=== PATIENT | female | born 1965 | race Caucasian/White ===

== ENCOUNTER → 2016-05-09 | Outpatient (CLI) | payer OTHER ==
[~2016-05-09] MED LIST: BRILINTA 90 MG90 MG PO; CALCIUM 600 +1 EAC3 PO; CLARITIN10 MG PO; DULERA 100 MCG8.8 GM INH; FLORINEF 0.1 M0.1 MG PO; FOSAMAX70 MG PO; HUMIRA40 MG/0.8 SQ; HYDROXYZINE HCL25 MG PO; IMDUR ER TAB 3030 MG PO; KLONOPIN0.5 MG PO; LIPITOR TAB 2020 MG PO; LOPRESSOR50 MG PO; LYRICA75 MG PO; NITROSTAT0.4 MG SL; NORVASC 5 MG TAB5 MG PO; NOVOLOG100 UNIT/1 SQ; PERCOCET 10-321 EACH PO; PLAQUENIL 200200 MG PO; PLETAL 100 MG100 MG PO; PRAVACHOL40 MG PO; PROTONIX40 MG PO; RANEXA1000 MG PO; SINGULAIR10 MG PO; TOPAMAX25 MG PO; VENTOLIN HFA 66.7 GM INH
[2016-05-09 09:54] LABS: HEMOGLOBIN 12.3 gm/dl (12.3-15.3); RED BLOOD COUNT 4.15 M/UL (4.00-5.10); WHITE BLOOD COUNT 4.6 K/UL (4.5-11.0)
== END ==
LOC: LAB 09:02
PROVIDERS: Internal Medicine Rheumatology
DX: Z51.81 Encounter for therapeutic drug level monitoring (principal); E10.65 Type 1 diabetes mellitus with hyperglycemia; I10 Essential (primary) hypertension; R53.83 Other fatigue; J02.9 Acute pharyngitis, unspecified; Z79.01 Long term (current) use of anticoagulants
CPT/HCPCS: 36415; 80053; 80061; 82043; 82570; 82607; 84439; 84443; 85025

== ENCOUNTER 2016-05-14 10:09 | Observation (INO) | payer OTHER ==
[~2016-05-14] VITALS: Ht 170.2 cm; Wt 72.1 kg
[~2016-05-14 10:09] MED LIST changes: -HYDROXYZINE HCL25 MG PO; -SINGULAIR10 MG PO
[2016-05-14 10:59] LABS: HEMOGLOBIN 11.9 gm/dl (12.3-15.3); RED BLOOD COUNT 3.96 M/UL (4.00-5.10); WHITE BLOOD COUNT 5.3 K/UL (4.5-11.0)
[2016-05-15 02:31] LABS: HEMOGLOBIN 12.5 gm/dl (12.3-15.3); RED BLOOD COUNT 4.18 M/UL (4.00-5.10); WHITE BLOOD COUNT 6.5 K/UL (4.5-11.0)
[2016-05-15] MEDS ORDERED: HYDROXYZINE HCL25 MG PO (03:28)
[2016-11-21] MEDS ORDERED: SINGULAIR10 MG PO (19:59)
[2016-11-21] MEDS ORDERED: NITROSTAT0.4 MG SL (20:00)
[2016-11-21] MEDS ORDERED: VENTOLIN HFA 66.7 GM INH (20:00)
== END 2016-05-15 19:59 | disposition home or self-care (01) ==
LOC: ER1 10:09 → ZEROF 11:31 → M/S 21:39 → CCU 05-15 03:19 → PROG CARE 05-15 08:56
PROVIDERS: Emergency Medicine; ADMIT Family Medicine
DX: I25.110 Atherosclerotic heart disease of native coronary artery with unstable angina pectoris (principal); I10 Essential (primary) hypertension; I49.8 Other specified cardiac arrhythmias; E10.610 Type 1 diabetes mellitus with diabetic neuropathic arthropathy; F41.8 Other specified anxiety disorders; M06.9 Rheumatoid arthritis, unspecified; M15.4 Erosive (osteo)arthritis; E78.5 Hyperlipidemia, unspecified; K76.0 Fatty (change of) liver, not elsewhere classified; J45.909 Unspecified asthma, uncomplicated; E10.40 Type 1 diabetes mellitus with diabetic neuropathy, unspecified; M79.7 Fibromyalgia; I25.10 Atherosclerotic heart disease of native coronary artery without angina pectoris; T79.A11A Traumatic compartment syndrome of right upper extremity, initial encounter; I73.9 Peripheral vascular disease, unspecified; M72.6 Necrotizing fasciitis; G47.33 Obstructive sleep apnea (adult) (pediatric); Z79.891 Long term (current) use of opiate analgesic; Z79.899 Other long term (current) drug therapy; Z86.718 Personal history of other venous thrombosis and embolism; Z90.711 Acquired absence of uterus with remaining cervical stump; Z88.6 Allergy status to analgesic agent; Z91.041 Radiographic dye allergy status; Z88.2 Allergy status to sulfonamides; Z79.52 Long term (current) use of systemic steroids; Z98.61 Coronary angioplasty status; Z86.69 Personal history of other diseases of the nervous system and sense organs; Z82.49 Family history of ischemic heart disease and other diseases of the circulatory system
CPT/HCPCS: 36415; 71010; 78452; 80048; 80053; 82550; 82553; 82962; 83874; 83880; 84484; 85025; 85610; 85730; 93005; 93017; 96374; 96375; 96376; 99291; A9502; G0378; J1644; J2270; J2405; J2785

== ENCOUNTER → 2020-03-22 | Outpatient (CLI) | payer OTHER ==
[~2020-03-22] MED LIST changes: +ARAVA20 MG PO; +BENTYL 20MG TAB20 MG PO; +ERYTHROMYCIN OP1 GM OP; +FOLBEE PLUS CZ1 EACH PO; +HYDROXYZINE HCL25 MG PO; +IBUPROFEN600 MG PO; +MIRALAX17 GM PO; +OMNICEF 300 MG300 MG PO; +PREDNISONE10 MG PO; +REGLAN10 MG PO; +SINGULAIR10 MG PO; +TESSALON PERLE100 MG PO; +VIBRAMYCIN100 MG PO; +Voltaren Gel 1 % TOP; +XYZAL5 MG PO; +ZOFRAN ODT 4 MG4 MG PO; +ZOLOFT50 MG PO
[2020-03-22 10:51] LABS: HEMOGLOBIN 13.6 gm/dl (12.3-15.3); RED BLOOD COUNT 4.51 M/UL (4.00-5.10); WHITE BLOOD COUNT 8.2 K/UL (4.5-11.0)
[2020-03-22 11:22] LABS: BUN/CREATININE RATIO 22 (0-10)
[2020-03-25 23:06] LABS: QUANTIFERON MITOGEN VALUE >10.00 IU/mL (.); QUANTIFERON NIL VALUE 0.03 IU/mL (.); QUANTIFERON TB1 AG VALUE 0.06 IU/mL (.); QUANTIFERON TB2 AG VALUE 0.04 IU/mL (.); QUANTIFERON-TB GOLD PLUS Negative (Negative)
== END ==
LOC: LAB 09:18
PROVIDERS: Internal Medicine Rheumatology
DX: Z51.81 Encounter for therapeutic drug level monitoring (principal); M06.00 Rheumatoid arthritis without rheumatoid factor, unspecified site
CPT/HCPCS: 36415; 80053; 85025; 85652; 86140

== ENCOUNTER 2020-04-22 15:26 | Emergency (ER) | payer OTHER ==
[2020-04-22 16:40] LABS: HEMOGLOBIN 13.8 gm/dl (12.3-15.3); RED BLOOD COUNT 4.55 M/UL (4.00-5.10); WHITE BLOOD COUNT 6.1 K/UL (4.5-11.0)
[2020-04-22 17:14] LABS: BUN/CREATININE RATIO 16 (0-10)
== END 2020-04-23 00:48 ==
LOC: ER1 15:26
PROVIDERS: Emergency Medicine
DX: G45.9 Transient cerebral ischemic attack, unspecified (principal); E11.65 Type 2 diabetes mellitus with hyperglycemia; J45.909 Unspecified asthma, uncomplicated; I11.9 Hypertensive heart disease without heart failure; Z20.822 Contact with and (suspected) exposure to COVID-19; Z79.4 Long term (current) use of insulin; Z90.710 Acquired absence of both cervix and uterus; Z88.6 Allergy status to analgesic agent; Z88.8 Allergy status to other drugs, medicaments and biological substances
CPT/HCPCS: 0240U; 70450; 71045; 80053; 82550; 82553; 82962; 83874; 83880; 84484; 85025; 93005; 96374; 96375; 99285; J2405

== ENCOUNTER 2020-06-20 09:10 | Emergency (ER) | payer OTHER ==
[2020-06-20 09:51] LABS: HEMOGLOBIN 12.6 gm/dl (12.3-15.3); RED BLOOD COUNT 4.12 M/UL (4.00-5.10); WHITE BLOOD COUNT 4.6 K/UL (4.5-11.0)
[2020-06-20 10:14] LABS: BUN/CREATININE RATIO 17 (0-10)
== END 2020-06-20 13:40 | disposition home or self-care (01) ==
LOC: ER1 09:10
PROVIDERS: Emergency Medicine
DX: R07.9 Chest pain, unspecified (principal); R51.9 Headache, unspecified; E78.5 Hyperlipidemia, unspecified; I10 Essential (primary) hypertension; Z79.899 Other long term (current) drug therapy; Z88.2 Allergy status to sulfonamides; Z88.6 Allergy status to analgesic agent; Z88.8 Allergy status to other drugs, medicaments and biological substances; Z91.041 Radiographic dye allergy status; Z86.73 Personal history of transient ischemic attack (TIA), and cerebral infarction without residual deficits
CPT/HCPCS: 70450; 71045; 80053; 82550; 82553; 83874; 84484; 85025; 93005; 99285

== ENCOUNTER → 2020-10-31 | Outpatient (CLI) | payer OTHER | LOC: HEART 5 10:35 | DX: J45.50 Severe persistent asthma, uncomplicated (principal); R94.2 Abnormal results of pulmonary function studies | CPT/HCPCS: 94010; 94060; 94729; 95012 ==

== ENCOUNTER → 2020-11-03 | Outpatient (CLI) | payer OTHER ==
[2020-11-03 08:09] LABS: HEMOGLOBIN 13.2 gm/dl (12.3-15.3); RED BLOOD COUNT 4.35 M/UL (4.00-5.10); WHITE BLOOD COUNT 6.4 K/UL (4.5-11.0)
== END ==
LOC: LAB 07:27
PROVIDERS: Nurse Practitioner Family
DX: J45.50 Severe persistent asthma, uncomplicated (principal); I10 Essential (primary) hypertension; E78.5 Hyperlipidemia, unspecified; E55.9 Vitamin D deficiency, unspecified
CPT/HCPCS: 36415; 80053; 80061; 82570; 82607; 82785; 84156; 84439; 84443; 85025

== ENCOUNTER 2020-11-27 10:05 | Emergency (ER) | payer OTHER | END 2020-11-27 12:42 | disposition home or self-care (01) | LOC: ER1 10:05 | DX: S70.02XA Contusion of left hip, initial encounter (principal); S80.02XA Contusion of left knee, initial encounter; S60.212A Contusion of left wrist, initial encounter; W19.XXXA Unspecified fall, initial encounter | CPT/HCPCS: 72192; 73110; 73564; 99284 ==

== ENCOUNTER → 2021-01-04 | Outpatient (CLI) | payer OTHER | LOC: KOH-I 12-28 14:30 | DX: N20.0 Calculus of kidney (principal) | CPT/HCPCS: 74176 ==

== ENCOUNTER 2021-01-30 20:54 | Inpatient (IN) | payer OTHER ==
[~2021-01-30] VITALS: Ht 170.2 cm; Wt 86.2 kg
[~2021-01-30 20:54] MED LIST changes: -FOSAMAX70 MG PO; -HUMIRA40 MG/0.8 SQ; -LIPITOR TAB 2020 MG PO; -LYRICA75 MG PO; -NOVOLOG100 UNIT/1 SQ; -PERCOCET 10-321 EACH PO; -PLETAL 100 MG100 MG PO
[2021-01-30 22:23] LABS: HEMOGLOBIN 12.4 gm/dl (12.3-15.3); RED BLOOD COUNT 4.09 M/UL (4.00-5.10); WHITE BLOOD COUNT 10.5 K/UL (4.5-11.0)
[2021-01-30 22:54] LABS: BUN/CREATININE RATIO 16 (0-10)
[2021-01-31] MEDS ORDERED: LYRICA150 MG PO (07:37)
[2021-01-31] MEDS ORDERED: PROTONIX40 MG PO (07:39)
[2021-01-31] MEDS ORDERED: CYCLOBENZAPRINE5 MG PO (14:49)
[2021-01-31] MEDS ORDERED: LACTULOSE10 GM/15 M PO (14:50)
[2021-01-31] MEDS ORDERED: MACROBID 100 M100 M1 PO (14:51)
[2021-01-31] MEDS ORDERED: ISOSORBIDE MONO30 MG PO (14:52)
[2021-01-31] MEDS ORDERED: KINERET100 MG/0.6 SQ (14:52)
[2021-01-31] MEDS ORDERED: ISOSORBIDE MONO60 MG PO (14:52)
[2021-01-31] MEDS ORDERED: LOSARTAN POTASS50 MG PO (14:53)
[2021-01-31] MEDS ORDERED: TAMSULOSIN HCL0.4 MG PO (14:53)
[2021-01-31] MEDS ORDERED: PERCOCET 7.5-31 EACH PO (18:58)
[2021-01-31] MEDS ORDERED: PLETAL 100 MG100 MG PO (19:01)
[2021-01-31] MEDS ORDERED: LIPITOR80 MG PO (19:01)
[2021-01-31] MEDS ORDERED: HUMIRA40 MG/0.8 SQ (19:09)
[2021-01-31] MEDS ORDERED: NOVOLOG100 UNIT/1 SQ (19:10)
[2021-01-31] MEDS ORDERED: NITROSTAT0.4 MG SL (20:00)
[2021-01-31] MEDS ORDERED: PROAIR DIGIHAL90 MCG INH (20:00)
[2021-02-01 05:37] LABS: HEMOGLOBIN 11.7 gm/dl (12.3-15.3); RED BLOOD COUNT 3.94 M/UL (4.00-5.10); WHITE BLOOD COUNT 11.5 K/UL (4.5-11.0)
[2021-02-01 06:24] LABS: BUN/CREATININE RATIO 21 (0-10)
[2021-02-01] MEDS ORDERED: AUGMENTIN 875-1 EACH PO (12:09)
--- NOTE | 2021-02-01 14:40 | NUR ---
PATIENT GIVEN INSTRUCTION TO LET NURSING STAFF KNOW BEFORE LEAVING SO TYHAT ROOM AIR SATS CAN BE CHECKED. PATIENT AND DAUGHTER LEFT AFTER PATIENT SHOWERED WIHTOUT LETTING ME KNOW. I CONTACTED DAUGHTER AND SHE CHECKED PATIENTS OXYGEN AT HOME WITH HOME O2 MONITOR AND STATES THAT HER MOTHERS O2 SAT WAS 94% AFTER AMBULATION ON ROOM AIR. SHE STATES THAT HE BROTHER WAS AN EMT AND THAT HE AND HER WILL KEEP A CLOSE EYE ON THIER MOTHER. THEY WERE GIVEN INSTRUCTION TO RETURN TO THE ER IF SHE HAS ANY CHANGE IN SYMPTOMS OR IF SHE DEVELOPS SHORTNESS OF BREATH. THE DAUGHTER VERBALZIED UNDERSTANDING. SHE DENIES ANY SYMTPOMS OF RESPIRTATORY DISTRESS IN THE PATIENT AT THIS TIME OF DISCUSION. MD MADE AWARE OF SITUATION AND NO FURHTER ORDERS GIVEN.
== END 2021-02-01 14:22 | disposition home or self-care (01) | DRG 872 ==
LOC: ER1 20:54 → CDU 01-31 00:26 → MED SURG 4 01-31 21:46
PROVIDERS: Physician Assistant; ADMIT Emergency Medicine
DX: A41.9 Sepsis, unspecified organism (principal); L03.114 Cellulitis of left upper limb; T79.A0XA Compartment syndrome, unspecified, initial encounter; Z20.822 Contact with and (suspected) exposure to COVID-19; M06.9 Rheumatoid arthritis, unspecified; J45.909 Unspecified asthma, uncomplicated; E11.65 Type 2 diabetes mellitus with hyperglycemia; I12.9 Hypertensive chronic kidney disease with stage 1 through stage 4 chronic kidney disease, or unspecified chronic kidney disease; M81.0 Age-related osteoporosis without current pathological fracture; K21.9 Gastro-esophageal reflux disease without esophagitis; E78.5 Hyperlipidemia, unspecified; F32.A Depression, unspecified; G47.33 Obstructive sleep apnea (adult) (pediatric); E11.22 Type 2 diabetes mellitus with diabetic chronic kidney disease; N18.9 Chronic kidney disease, unspecified; G43.909 Migraine, unspecified, not intractable, without status migrainosus; I25.10 Atherosclerotic heart disease of native coronary artery without angina pectoris; Z95.5 Presence of coronary angioplasty implant and graft; Z98.890 Other specified postprocedural states; Z86.73 Personal history of transient ischemic attack (TIA), and cerebral infarction without residual deficits; Z90.710 Acquired absence of both cervix and uterus; Z80.3 Family history of malignant neoplasm of breast; Z80.8 Family history of malignant neoplasm of other organs or systems; Z83.3 Family history of diabetes mellitus; Z82.49 Family history of ischemic heart disease and other diseases of the circulatory system; Z88.5 Allergy status to narcotic agent; Z88.2 Allergy status to sulfonamides; Z88.8 Allergy status to other drugs, medicaments and biological substances; Z91.041 Radiographic dye allergy status; Z79.4 Long term (current) use of insulin; I25.2 Old myocardial infarction
CPT/HCPCS: 36415; 73200; 80053; 80202; 82962; 83605; 85025; 85027; 85610; 85652; 86140; 87040; 87086; 94664; 94760; 96365; 96368; 96375; 99284; J1200; J1650; J2405; J2543; J2930; J3370; J7030; J7042; J7070; U0002

== ENCOUNTER 2021-02-07 15:21 | Inpatient (IN) | payer OTHER ==
[~2021-02-07] VITALS: Ht 170.2 cm; Wt 84.4 kg
[~2021-02-07 15:21] MED LIST changes: +AUGMENTIN 875-1 EACH PO; +CYCLOBENZAPRINE5 MG PO; +HUMIRA40 MG/0.8 SQ; +ISOSORBIDE MONO30 MG PO; +ISOSORBIDE MONO60 MG PO; +KINERET100 MG/0.6 SQ; +LACTULOSE10 GM/15 M PO; +LIPITOR80 MG PO; +LOSARTAN POTASS50 MG PO; +LYRICA150 MG PO; +MACROBID 100 M100 M1 PO; +NOVOLOG100 UNIT/1 SQ; +PERCOCET 7.5-31 EACH PO; +PLETAL 100 MG100 MG PO; +PROAIR DIGIHAL90 MCG INH; +TAMSULOSIN HCL0.4 MG PO
[2021-02-07 16:25] LABS: HEMOGLOBIN 11.8 gm/dl (12.3-15.3); RED BLOOD COUNT 3.94 M/UL (4.00-5.10); WHITE BLOOD COUNT 8.5 K/UL (4.5-11.0)
[2021-02-07 16:48] LABS: BUN/CREATININE RATIO 13 (0-10)
[2021-02-08 05:20] LABS: HEMOGLOBIN 10.9 gm/dl (12.3-15.3); RED BLOOD COUNT 3.69 M/UL (4.00-5.10); WHITE BLOOD COUNT 7.2 K/UL (4.5-11.0)
[2021-02-08 06:19] LABS: BUN/CREATININE RATIO 14 (0-10)
[2021-02-08] MEDS ORDERED: VITAMIN B COMP1 EACH PO (11:25)
[2021-02-08] MEDS ORDERED: ADVAIR 500-501 EACH INH (14:50)
[2021-02-08] MEDS ORDERED: FOSAMAX70 MG PO (18:58)
--- NOTE | 2021-02-09 16:52 | NUR ---
PATIENT COMPLAINT OF VANCOMYCIN CAUSING NAUSEA. MD NOTIFIED. NEW ORDER FOR ZOFRAN NOTED. PRESCRIBER AWARE OF POSSIBLE QT PROLONGATION RELATED TO DRUG/DRUG INTERACTION FLAG.
[2021-02-10] MEDS ORDERED: DIFLUCAN150 MG PO (19:28)
[2021-02-11 06:43] LABS: HEMOGLOBIN 10.7 gm/dl (12.3-15.3); RED BLOOD COUNT 3.64 M/UL (4.00-5.10); WHITE BLOOD COUNT 4.8 K/UL (4.5-11.0)
[2021-02-11] MEDS ORDERED: ZYVOX600 MG PO (10:17)
[2021-02-12 04:30] LABS: HEMOGLOBIN 11.2 gm/dl (12.3-15.3); RED BLOOD COUNT 3.82 M/UL (4.00-5.10)
== END 2021-02-13 15:44 | disposition home or self-care (01) | DRG 603 ==
LOC: ER1 15:21 → M/S 21:26 → CDU 21:26 → M/S 02-08 15:52
PROVIDERS: Internal Medicine; Physician Assistant; Surgery; ADMIT Internal Medicine Infectious Disease
PROC: 0H9EXZZ Drainage of Left Lower Arm Skin, External Approach (ICD-10-PCS; principal; 2021-02-09 10:00)
DX: L03.114 Cellulitis of left upper limb (principal); D84.9 Immunodeficiency, unspecified; M79.A11 Nontraumatic compartment syndrome of right upper extremity; Z20.822 Contact with and (suspected) exposure to COVID-19; B95.62 Methicillin resistant Staphylococcus aureus infection as the cause of diseases classified elsewhere; M06.9 Rheumatoid arthritis, unspecified; L02.414 Cutaneous abscess of left upper limb; K21.9 Gastro-esophageal reflux disease without esophagitis; G43.909 Migraine, unspecified, not intractable, without status migrainosus; E78.5 Hyperlipidemia, unspecified; E11.65 Type 2 diabetes mellitus with hyperglycemia; Z96.41 Presence of insulin pump (external) (internal); I10 Essential (primary) hypertension; J45.909 Unspecified asthma, uncomplicated; I73.9 Peripheral vascular disease, unspecified; E11.51 Type 2 diabetes mellitus with diabetic peripheral angiopathy without gangrene; M72.8 Other fibroblastic disorders; M81.0 Age-related osteoporosis without current pathological fracture; I25.10 Atherosclerotic heart disease of native coronary artery without angina pectoris; G89.29 Other chronic pain; Z79.4 Long term (current) use of insulin; Z86.73 Personal history of transient ischemic attack (TIA), and cerebral infarction without residual deficits; Z95.820 Peripheral vascular angioplasty status with implants and grafts; Z95.5 Presence of coronary angioplasty implant and graft; Z98.890 Other specified postprocedural states; Z90.710 Acquired absence of both cervix and uterus; Z88.1 Allergy status to other antibiotic agents; Z82.61 Family history of arthritis; Z88.6 Allergy status to analgesic agent; Z88.8 Allergy status to other drugs, medicaments and biological substances; Z88.5 Allergy status to narcotic agent
CPT/HCPCS: 36415; 80048; 80053; 80202; 82962; 85025; 85652; 86140; 87040; 87070; 87077; 87186; 87205; 94640; 94760; 99284; J1100; J1335; J1650; J1885; J2001; J2250; J2270; J2405; J2704; J3010; J3370; J7070; J7120; U0002

== ENCOUNTER 2021-03-03 19:05 | Inpatient (IN) | payer OTHER ==
[~2021-03-03] VITALS: Ht 170.2 cm; Wt 86.2 kg
[~2021-03-03 19:05] MED LIST changes: +ADVAIR 500-501 EACH INH; +DIFLUCAN150 MG PO; +FOSAMAX70 MG PO; +VITAMIN B COMP1 EACH PO; +ZYVOX600 MG PO
[2021-03-03 20:11] LABS: HEMOGLOBIN 11.9 gm/dl (12.3-15.3); RED BLOOD COUNT 4.07 M/UL (4.00-5.10); WHITE BLOOD COUNT 5.7 K/UL (4.5-11.0)
[2021-03-03 20:34] LABS: BUN/CREATININE RATIO 12 (0-10)
[2021-03-05 07:13] LABS: HEMOGLOBIN 11.2 gm/dl (12.3-15.3); RED BLOOD COUNT 3.98 M/UL (4.00-5.10)
[2021-03-05 07:27] LABS: BUN/CREATININE RATIO 23 (0-10)
[2021-03-06 04:52] LABS: HEMOGLOBIN 11.3 gm/dl (12.3-15.3); RED BLOOD COUNT 3.93 M/UL (4.00-5.10)
[2021-03-06 05:20] LABS: BUN/CREATININE RATIO 28 (0-10)
[2021-03-06 05:23] LABS: WHITE BLOOD COUNT 10.7 K/UL (4.5-11.0)
[2021-03-06] MEDS ORDERED: MEDROL DOSEPAK 24 MG PO (10:58)
[2021-03-06] MEDS ORDERED: OMNICEF 300 MG300 MG PO (10:58)
[2021-03-06] MEDS ORDERED: AZITHROMYCIN250 MG PO (11:05)
--- NOTE | 2021-03-06 12:29 | NUR ---
PATIENT O2 SAT 84% ON ROOM AIR.
[2021-03-07 04:52] LABS: HEMOGLOBIN 11.5 gm/dl (12.3-15.3); RED BLOOD COUNT 3.98 M/UL (4.00-5.10); WHITE BLOOD COUNT 10.2 K/UL (4.5-11.0)
[2021-03-07 05:16] LABS: BUN/CREATININE RATIO 24 (0-10)
--- NOTE | 2021-03-08 09:45 | NUR ---
spoken with dr. neal and discussed patient condition ie: bs, nausea. no new order received
== END 2021-03-08 15:11 | disposition home or self-care (01) | DRG 177 ==
LOC: ER1 19:05 → CDU 03-04 03:09 → M/S 03-04 03:09
PROVIDERS: Internal Medicine; Physician Assistant; ADMIT Family Medicine
PROC: XW033E5 Introduction of Remdesivir Anti-infective into Peripheral Vein, Percutaneous Approach, New Technology Group 5 (ICD-10-PCS; principal; 2021-03-04)
PROC: 3E0333Z Introduction of Anti-inflammatory into Peripheral Vein, Percutaneous Approach (ICD-10-PCS; 2021-03-04)
PROC: 8E0ZXY6 Isolation (ICD-10-PCS; 2021-03-04)
DX: U07.1 COVID-19 (principal); J12.82 Pneumonia due to coronavirus disease 2019; J18.9 Pneumonia, unspecified organism; J96.21 Acute and chronic respiratory failure with hypoxia; J44.0 Chronic obstructive pulmonary disease with (acute) lower respiratory infection; N17.9 Acute kidney failure, unspecified; I42.2 Other hypertrophic cardiomyopathy; D68.59 Other primary thrombophilia; A08.39 Other viral enteritis; R79.89 Other specified abnormal findings of blood chemistry; J45.909 Unspecified asthma, uncomplicated; M06.9 Rheumatoid arthritis, unspecified; E11.65 Type 2 diabetes mellitus with hyperglycemia; K21.9 Gastro-esophageal reflux disease without esophagitis; E78.5 Hyperlipidemia, unspecified; G43.909 Migraine, unspecified, not intractable, without status migrainosus; M81.0 Age-related osteoporosis without current pathological fracture; G89.29 Other chronic pain; I11.9 Hypertensive heart disease without heart failure; Z96.41 Presence of insulin pump (external) (internal); E11.51 Type 2 diabetes mellitus with diabetic peripheral angiopathy without gangrene; Z86.73 Personal history of transient ischemic attack (TIA), and cerebral infarction without residual deficits; Z79.4 Long term (current) use of insulin; Z98.62 Peripheral vascular angioplasty status; Z90.710 Acquired absence of both cervix and uterus; Z98.890 Other specified postprocedural states; Z82.61 Family history of arthritis; Z80.3 Family history of malignant neoplasm of breast; Z80.8 Family history of malignant neoplasm of other organs or systems; Z88.5 Allergy status to narcotic agent; Z88.2 Allergy status to sulfonamides; Z88.1 Allergy status to other antibiotic agents; Z91.041 Radiographic dye allergy status; I25.2 Old myocardial infarction; Z87.81 Personal history of (healed) traumatic fracture
CPT/HCPCS: 36415; 36600; 71045; 80053; 82550; 82553; 82803; 82962; 83735; 83874; 83880; 84484; 85025; 85027; 85379; 85610; 85730; 93005; 94640; 94664; 94760; 96374; 96375; 99285; J0248; J0696; J1100; J1200; J1650; J2405; J2930; J7030; Q9967

== ENCOUNTER → 2021-03-16 | Outpatient (CLI) | payer OTHER ==
[~2021-03-16] MED LIST changes: +AZITHROMYCIN250 MG PO; +MEDROL DOSEPAK 24 MG PO
== END ==
LOC: EXRD 13:13
DX: U07.1 COVID-19 (principal); R91.8 Other nonspecific abnormal finding of lung field
CPT/HCPCS: 71046

== ENCOUNTER → 2021-06-15 | Outpatient (CLI) | payer OTHER | LOC: HEART 5 05-23 07:30 | DX: I25.119 Atherosclerotic heart disease of native coronary artery with unspecified angina pectoris (principal); Z98.61 Coronary angioplasty status; M54.50 Low back pain, unspecified; G89.29 Other chronic pain; R94.39 Abnormal result of other cardiovascular function study | CPT/HCPCS: 78452; A9502; J2785 ==

== ENCOUNTER → 2021-08-15 | Outpatient (CLI) | payer OTHER ==
[~2021-08-15] MED LIST changes: +BENADRYL 25MG C25 MG PO; +BRILINTA60 MG PO; +FAMOTIDINE20 MG PO; +FLOMAX 0.4 MG0.4 MG PO; +GLUCAGEN1 MG INJ; +LIDOCAINE-PRILOC5 GM TP; +NOVOLOG100 UNIT/1 SC; +PROBIOTIC250 MG PO; +RANEXA500 MG PO; +SPIRIVA RESPIMAT4 GM INH; +TOPICAINE 530 GM TP
[2021-08-15 07:20] LABS: HEMOGLOBIN 11.7 gm/dl (12.3-15.3); RED BLOOD COUNT 3.96 M/UL (4.00-5.10); WHITE BLOOD COUNT 9.4 K/UL (4.5-11.0)
[2021-08-15 07:39] LABS: BUN/CREATININE RATIO 26 (0-10)
== END ==
LOC: CATH 06:40
PROVIDERS: Internal Medicine Cardiovascular Disease
DX: I25.118 Atherosclerotic heart disease of native coronary artery with other forms of angina pectoris (principal); I25.84 Coronary atherosclerosis due to calcified coronary lesion; E11.9 Type 2 diabetes mellitus without complications; I10 Essential (primary) hypertension
CPT/HCPCS: 71045; 80048; 82962; 85025; 85610; 93005; 93571; 99152; 99153; C1769; C1894; J0360; J1200; J1644; J2250; J2930; J3010; J7040; Q9967

== ENCOUNTER → 2021-10-11 | Outpatient (CLI) | payer OTHER | LOC: EXRD 10:28 | DX: M54.2 Cervicalgia (principal) | CPT/HCPCS: 72050 ==